=== PATIENT | female | born 1975 | race Caucasian/White ===

== ENCOUNTER 2018-02-12 22:31 | Emergency (ER) | payer BC, OTHER ==
[~2018-02-12 22:31] MED LIST: AUGM875T PO; BENZ100 PO; ERGO50000 PO; PRED20 PO; SYNT137T PO; VITA100T5 PO; Z.0.BCPILL PO
[2018-02-12 22:33] VITALS: BP 171/99; PULSE 104; RESP 18; TEMP 98; O2SAT 97
[2018-02-12] MEDS ORDERED: TETANUS/DIPHTHERIA TOXOID ADULT 0.5 ML VIAL IM ONE (22:45)
[2018-02-12] MEDS ORDERED: LIDOCAINE HCL 1% 30 ML VIAL INFIL ONE (22:45)
[2018-02-12] MEDS ORDERED: LEVO.15 PO (22:47)
[2018-02-12] MEDS ORDERED: VITA1000 PO (22:47)
[2018-02-12] MEDS ORDERED: LIDOCAINE HCL 1% PF 30 ML VIAL ONE (22:50)
--- NOTE | 2018-02-12 22:51 | PD ---
HPI Chief Complaint: Laceration/Skin Injury Time Seen by Provider: 22:38 Travel History International Travel<30 days: No Contact w/Intl Traveler<30days: No Traveled to known affect area: No History of Present Illness HPI 32-year-old female complained of right third finger laceration. Patient accidentally lacerated her right third finger this evening. Patient denies any other injury. Patient denies any weakness and numbness of the finger. Patient is not up-to-date with TD booster. Patient denies any chance of being . PFSH Past Medical History Diminished Hearing: No Immunizations Current: Yes Thyroid Disease: Yes ?: Not : 3 Para: 3 Past Surgical History Surgical History: No Previous Surgery Social History Alcohol Use: No Tobacco Use: No Substance Use: No Allergies-Medications (Allergen,Severity, Reaction): Coded Allergies: No Known Allergies (Verified Adverse Reaction, Unknown, 02/12/18) Reported Meds & Prescriptions Reported Meds & Active Scripts Active Tessalon Perles (Benzonatate) 100 Mg Cap 100 Mg PO TID PRN Deltasone (Prednisone) 20 Mg Tab 20 Mg PO DIRECTED 2 TABS PO DAILY FOR 3 DAYS,THEN 1 TAB PO DAILY FOR 3 DAYS. Augmentin 875 mg Tab (Amoxicillin & Pot Clavulanate 875 mg Tab) 875 Mg Tab 875 Mg PO BID 10 Days Reported Vitamin C (Ascorbic Acid) 100 Mg Tab 100 Mg PO Vitamin D / Drisdol 50,000 Units (Ergocalciferol) 50,000 Units Cap 1 Cap PO Control Pills (Miscellaneous Medication) Tab 1 Tab PO DAILY Synthroid 137 mcg (Levothyroxine Sodium) 137 Mcg Tab 137 Mcg PO DAILY Review of Systems General / Constitutional: No: Fever Eyes: No: Visual changes HENT: No: Headaches Cardiovascular: No: Chest Pain or Discomfort Respiratory: No: Shortness of Breath Gastrointestinal: No: Abdominal Pain Genitourinary: No: Dysuria Musculoskeletal: No: Pain Skin: No Rash Neurologic: No: Weakness Psychiatric: No: Depression Endocrine: No: Polydipsia Hematologic/Lymphatic: No: Easy Bruising Physical Exam Narrative GENERAL: Well-nourished, well-developed patient. SKIN: Focused skin assessment warm/dry. HEAD: Normocephalic. EYES: No scleral icterus. No injection or drainage. NECK: Supple, trachea midline. No JVD or lymphadenopathy. CARDIOVASCULAR: Regular rate and rhythm without murmurs, gallops, or rubs. RESPIRATORY: Breath sounds equal bilaterally. No accessory muscle use. GASTROINTESTINAL: Abdomen soft, non-tender, nondistended. MUSCULOSKELETAL: No cyanosis, or edema. BACK: Nontender without obvious deformity. No CVA tenderness. Patient has 1.5 cm laceration dorsal aspect of the right third finger middle phalanx. Sensory motor function distally intact. No tendon ligament joint involvement. Data Data Last Documented VS Vital Signs Date Time Temp Pulse Resp B/P (MAP) Pulse Ox O2 Delivery O2 Flow Rate FiO2 02/12/18 22:33 98.0 104 18 171/99 (123) 97 Orders Orders Tetanus/Diphtheria Tox Adult (Tetanus/Di (02/12/18 22:45) Lidocaine 1% Inj (Xylocaine 1% Inj) (02/12/18 22:45) MDM Medical Decision Making Medical Screen Exam Complete: Yes Emergency Medical Condition: Yes Differential Diagnosis Differential diagnosis including laceration, ligament tendon joint involvement. Narrative Course 42-year-old female with right third finger laceration. Td booster given. Diagnosis Primary Impression: Finger laceration Qualified Codes: S61.212A - Laceration without foreign body of right middle finger without damage to nail, initial encounter Patient Instructions: General Instructions Additional Instructions: Wound care daily. Suture removal in 10 days. Follow-up with personal physician or return in 10 days for suture removal. Med/Other Pt SpecificInfo: No Change to Meds Disposition: 01 DISCHARGE HOME Condition: Stable Luis Huitron MD Feb 12, 2018 22:51
--- NOTE | 2018-02-12 23:03 | PD ---
Data Data Last Documented VS Vital Signs Date Time Temp Pulse Resp B/P (MAP) Pulse Ox O2 Delivery O2 Flow Rate FiO2 02/12/18 22:33 98.0 104 18 171/99 (123) 97 Orders Orders Tetanus/Diphtheria Tox Adult (Tetanus/Di (02/12/18 22:45) Lidocaine 1% Inj (Xylocaine 1% Inj) (02/12/18 22:45) Lidocaine Pf 1% Inj (Xylocaine-Mpf 1% In (02/12/18 22:50) MDM Medical Record Reviewed: Yes Supervised Visit with ELENA: No Narrative Course This patient has a laceration to the dorsum of the right third finger which I was asked to repair. She verbally consents. Procedures Procedure Narrative LACERATION LOCATION: Dorsal right third finger LENGTH: 1 cm NUMBER OF STITCHES/ASHUTOSH: 2 REPAIR: The area of the laceration was prepped with Betadine and sterilely draped. The laceration was infiltrated wit 1% lidocaine digital block. The wound was copiously irrigated and explored without evidence of foreign body, tendon injury or neurovascular injury. The wound was closed using [-5-0 nylon simple interrupted. This was a single layer repair. A sterile dressing was applied. The patient was advised to keep the dressing clean and dry. Patient tolerated the procedure well. Diagnosis Primary Impression: Finger laceration Qualified Codes: S61.212A - Laceration without foreign body of right middle finger without damage to nail, initial encounter Patient Instructions: General Instructions Additional Instruction: Wound care daily. Suture removal in 10 days. Follow-up with personal physician or return in 10 days for suture removal. Disposition: 01 DISCHARGE HOME Condition: Stable Roger Saldivar Feb 12, 2018 23:03
== END 2018-02-12 23:31 | disposition home or self-care (01) ==
LOC: NEPD 22:31
DX: S61.212A Laceration without foreign body of right middle finger without damage to nail, initial encounter (principal); W45.8XXA Other foreign body or object entering through skin, initial encounter; Z23 Encounter for immunization
CPT/HCPCS: 12001; 90471; 90714